=== PATIENT | female | born 1995 | race Caucasian/White ===

== ENCOUNTER 2018-12-18 12:45 | Emergency (ER) | payer MEDICAID ==
[~2018-12-18] VITALS: Ht 165.1 cm; Wt 70.0 kg
[2018-12-18 13:40] VITALS: BP 192/124
== END 2018-12-18 14:47 | disposition expired ==
LOC: EDBD 12:45 → ED 14:20
DX: I46.9 Cardiac arrest, cause unspecified (principal)
CPT/HCPCS: 92950; 99285